=== PATIENT | male | born 1995 | race Caucasian/White ===

== ENCOUNTER 2019-03-06 18:31 | Emergency (ER) | payer OTHER ==
[~2019-03-06] VITALS: Ht 177.8 cm; Wt 72.6 kg
== END 2019-03-06 19:31 | disposition home or self-care (01) ==
LOC: ER 18:31
DX: H61.21 Impacted cerumen, right ear (principal); Z87.891 Personal history of nicotine dependence
CPT/HCPCS: 99282

== ENCOUNTER 2019-03-08 16:43 | Emergency (ER) | payer OTHER ==
[~2019-03-08] VITALS: Ht 177.8 cm; Wt 72.6 kg
== END 2019-03-08 18:32 | disposition home or self-care (01) ==
LOC: ER 16:43
DX: H61.21 Impacted cerumen, right ear (principal); Z87.891 Personal history of nicotine dependence
CPT/HCPCS: 69210; 99282-25